=== PATIENT | male | born 1985 | race African-American/Black ===

== ENCOUNTER 2022-10-03 18:37 | Emergency (ER) | payer MEDICAID ==
--- NOTE | 2022-10-03 19:09 | NUR ---
Called- no show in lobby and outside
--- NOTE | 2022-10-03 19:09 | NUR ---
PATIENT LEFT WITHOUT BEING SEEN BY DR. Hameed. NO FURTHER CARE PROVIDED FOR PATIENT.
== END 2022-10-03 19:09 | disposition left against medical advice (07) ==
LOC: MED 18:37
DX: H92.09 Otalgia, unspecified ear (principal); Z53.21 Procedure and treatment not carried out due to patient leaving prior to being seen by health care provider